=== PATIENT | male | born 2000 | race Caucasian/White ===

== ENCOUNTER 2020-11-09 01:51 | Emergency (ER) | payer BC, SELFPAY ==
--- NOTE | ~2020-11-09 | CT_ITS ---
EXAMINATION: CT abdomen pelvis w con INDICATION: Left lower quadrant pain TECHNIQUE: Computed tomographic images of the abdomen and pelvis were obtained after the administrati on of 100 cc of Omnipaque 350 intravenous contrast. The dose-length product (DLP) was 251.35 mGy-cm. Automated exposure control and iterative reconstruction technique were employed. COMPARISON: None available FINDINGS: The lung bases are clear. The heart size is normal. The liver, spleen, pancreas, gallbladde r, and adrenal glands are normal. Hypoattenuating lesions in the kidneys, measuring up to 6 cm on the right, are too small to characterize but likely represent cysts. The appendix is normal. No patholog ically enlarged abdominal or pelvic lymph nodes are identified. There is no free intraperitoneal gas or evidence of bowel obstruction. There is some apparent formed stool in nondilated small bowel loops of the pelvis, suggesting slow transit. The visualized osseous structures are unremarkable. There is a moderate volume of colonic stool. IMPRESSION: 1. Constipation. Small amount of formed stool in nondilated small bowel loops the pelvis suggests slo w transit. Reviewed, dictated and finalized at location A. IMPRESSION: 1. Constipation. Small amount of formed stool in nondilated small bowel loops t he pelvis suggests slow transit.
[2020-11-09 02:00] VITALS: BP 158/91; PULSE 109; RESP 16; TEMP 36.4; O2SAT 100
[2020-11-09 02:03] LABS: Glucose Point of Care 162 (65-105)
[2020-11-09 02:31] LABS: Basophils Absolute Auto 0.1 K/mm3 (0.0-0.1); Basophils Percent Auto 0.9 % (0.2-1.2); Eosinophils Absolute Auto 0.2 K/mm3 (0-0.3); Eosinophils Percent Auto 2.8 % (0-4.4); Hematocrit 40.4 % (42.0-52.0); Hemoglobin 14.7 g/dL (14.0-18.0); Immature Granulocyte Absolute 0.02 K/mm3 (0.00-0.031); Immature Granulocyte Percent A 0.4 % (0-0.5); Lymphocytes Absolute Auto 2.31 K/mm3 (0.9-3.2); Lymphocytes Percent Auto 42.5 % (18.3-44.2); Mean Corpuscular HGB Conc 36.4 g/dl (32-36); Mean Corpuscular Hemoglobin 31.2 pg (26-34); Mean Corpuscular Volume 85.8 fl (80-100); Monocytes Absolute Auto 0.5 K/mm3 (0.1-0.6); Neutrophils Absolute Auto 2.4 K/mm3 (1.3-6.7); Neutrophils Percent Auto 44.4 % (45.5-73.1); Platelet Count Result 318 k/mm3 (150-375); Red Blood Count 4.71 M/mm3 (4.6-6.20); Red Cell Distribution Width 12.8 % (11.5-14.5); White Blood Count 5.4 K/mm3 (4.5-10.0)
[2020-11-09 02:33] LABS: Add Urine Microscopic? NO; Appearance Urine Clear (Clear); Bilirubin Urine Negative (Negative); Blood Urine Negative (Negative); Color Urine Colorless (Yellow); Glucose Urine UA Negative (Negative); Ketones Urine Negative (Negative); Leukocyte Esterase Ur Negative LEU/UL (Negative); Nitrate Urine Negative (Negative); Protein Urine Negative (Negative); Urobilinogen Urine Negative mg/dL (<2.0)
[2020-11-09 02:34] LABS: Specific Grav Ur 1.003 (1.001-1.035)
[2020-11-09] MEDS: SODIUM CHLORIDE 0.9% IV 1,000 ML 999 ML IV CONT (02:35)
[2020-11-09] MEDS: ONDANSETRON INJ 4 MG/2 ML VIAL IV PUSH (02:35)
[2020-11-09] MEDS: MORPHINE SULFATE (*CRX) 4 MG/ML INJ IV PUSH (02:35)
[2020-11-09 02:44] LABS: Alanine Aminotransferase 13 U/L (4-50); Albumin Level 3.8 g/dL (3.5-5.1); Alkaline Phosphatase 47 U/L (38-126); Anion Gap 7 mmol/L (8-16); Aspartate Amino Transferase 23 U/L (17-59); Bilirubin,Total 0.2 mg/dL (0.2-1.3); Blood Urea Nitrogen 12 mg/dL (9-20); Calcium 8.7 mg/dL (8.4-10.2); Carbon Dioxide 31 mmol/L (22-30); Chloride 103 mmol/L (98-107); Estimated CRCL calculation 189 ml/min; Estimated Glomerular Filt Rate > 60; Glucose 148 mg/dL (75-110); Lipase 129 U/L (23-300); Potassium 3.4 mmol/L (3.4-5.0); Sodium 141 mmol/L (137-145)
[2020-11-09 02:46] VITALS: BP 140/96; PULSE 95; RESP 21; O2SAT 99
[2020-11-09 02:49] LABS: Beta-Hydroxybutyrate/Acetoacetate 0.07 mmol/L (0.02-0.27)
[2020-11-09 02:54] LABS: Lactic Acid Reflex 1.6 mmol/L (0.7-2.1)
[2020-11-09 03:07] VITALS: BP 141/102; PULSE 103; RESP 15; O2SAT 99
[2020-11-09 03:17] VITALS: BP 145/100; PULSE 93; RESP 22; O2SAT 100
[2020-11-09 03:31] VITALS: BP 139/100; PULSE 96; RESP 20; O2SAT 98
--- NOTE | 2020-11-09 03:35 | ED.GENADULT ---
HPI - General Adult General Chief complaint: Recheck/Abnormal Lab/Rx Stated complaint: low bs/ kidney issues? Time Seen by Provider: 11/09/20 01:58 History of Present Illness HPI narrative: Patient is a 20-year-old gentleman who presents the emergency department with the chief complaint of blood sugar issues. The patient reports he is a insulin-dependent diabetic and has been seen in the emergency department multiple times over the last several days at different facilities in the area. Patient reports he felt a tearing sensation in his abdominal wall and has had pain and discomfort in his abdomen since then he reports has been urinating less and is felt as though he has been rather thirsty. The patient reports that he has had problems with his blood sugars being low during the day and have been fluctuating. The patient did report that he had restarted back on his insulin regimen about a month ago after he had had some insurance issues. Patient denies vomiting denies diarrhea. Related Data Allergies Allergy/AdvReac Type Severity Reaction Status Date / Time No Known Allergies Allergy Verified 11/09/20 02:34 Review of Systems Review of Systems: Narrative: A 10 system review of systems was completed on the patient and is negative except for what is stated in the HPI. Nursing and ancillary documentation was reviewed. PMFSH Comments Past medical history is significant for insulin-dependent diabetes Social history the patient denies illicit drug use Exam Narrative: Exam Narrative: GENERAL: Well-appearing, well-nourished, and in no acute distress. HEAD: Normocephalic, atraumatic. EYES: PERRLA and EOMI. ENT: Nares clear, no rhinorrhea or epistaxis. Mucous membranes moist. NECK: Supple. CHEST: Clear to auscultation. No respiratory distress. HEART: Regular rate and rhythm. No murmur heard. Normal peripheral pulses. ABDOMEN: Soft, diffuse mild tenderness, nondistended, normal active bowel sounds. EXTREMITIES: Normal range of motion. No edema. SKIN: Warm, dry, no rash. NEURO: No focal deficits. Alert and oriented x3. PSYCH: Normal mood and affect. Course Course Emergency Course: CT scan was read by the stat read radiologist as showing prominent fecal material most likely constipation no evidence of bowel obstruction and no abnormal fluid Laboratory studies showed no evidence of DKA white blood cell count was within normal limits Vital Signs Vital signs: Vital Signs Temperature 36.4 C 11/09/20 02:00 Pulse Rate 109 H 11/09/20 02:00 Respiratory Rate 16 11/09/20 02:00 Blood Pressure 158/91 H 11/09/20 02:00 Pulse Oximetry 100 11/09/20 02:00 Temperature 36.4 C 11/09/20 02:00 Pulse Rate 95 11/09/20 02:46 Respiratory Rate 21 H 11/09/20 02:46 Blood Pressure 140/96 H 11/09/20 02:46 Pulse Oximetry 99 11/09/20 02:46 Medical Decision Making Vital Signs Vital Signs: Vital Signs Temperature 36.4 C 11/09/20 02:00 Pulse Rate 109 H 11/09/20 02:00 Respiratory Rate 16 11/09/20 02:00 Blood Pressure 158/91 H 11/09/20 02:00 Pulse Oximetry 100 11/09/20 02:00 Temperature 36.4 C 11/09/20 02:00 Pulse Rate 95 11/09/20 02:46 Respiratory Rate 21 H 11/09/20 02:46 Blood Pressure 140/96 H 11/09/20 02:46 Pulse Oximetry 99 11/09/20 02:46 Lab Data Result diagrams: 11/09/20 02:24 11/09/20 02:25 Labs: Lab Results 11/09/20 11/09/20 11/09/20 Range/Units 01:59 02:24 02:24 WBC 5.4 (4.5-10.0) K/mm3 RBC 4.71 (4.6-6.20) M/mm3 Hgb 14.7 (14.0-18.0) g/dL Hct 40.4 L (42.0-52.0) % MCV 85.8 (80-100) fl MCH 31.2 (26-34) pg MCHC 36.4 H (32-36) g/dl RDW 12.8 (11.5-14.5) % Plt Count 318 (150-375) k/mm3 MPV 9.0 (7.4-10.4) fl Immature Gran % (Auto) 0.4 (0-0.5) % Neut % (Auto) 44.4 L (45.5-73.1) % Lymph % (Auto) 42.5 (18.3-44.2) % [place] % (Auto) 9.0 H (2.6-8.5) % Eos % (Auto) 2.8 (0-4.
[2020-11-09 04:05] VITALS: BP 137/105; PULSE 90; RESP 16; TEMP 37; O2SAT 100
== END 2020-11-09 04:06 | disposition home or self-care (01) ==
PROVIDERS: Emergency Provider Emergency Medicine
DX: R10.84 Generalized abdominal pain (principal); E10.69 Type 1 diabetes mellitus with other specified complication; Z79.4 Long term (current) use of insulin
CPT/HCPCS: 36415; 74177; 80053; 81003; 82010; 82948; 83605; 83690; 85025; 96361; 96374; 96375; 99284; J2270; J2405; J7030; Q9967

== ENCOUNTER 2022-06-22 00:59 | Day surgery (SDC) | payer BC, SELFPAY ==
[2022-06-19 09:46] VITALS: BMI 23.8
--- NOTE | 2022-06-19 09:58 | PC.NURSE ---
Report to the Outpatient Waiting Room, entrance under the green pavilion located off [facility], at time ___0900____ on date _06/22/22 . Planned Procedure Time: ___1100 . Time changes happen often and if your time is changed the preop area will call you the afternoon before. - You and your visitor will be asked to self-screen and do not enter if you have any COVID symptoms. - We encourage only one visitor and NO visitors under age 16 are allowed at this time. Your visitor will receive communication by the phone number that is given day of service. - The patient visitor is requested to social distance or may leave the building when not with patient due to restrictions. - A mask is required within the hospital. Patients may have clear liquids (water, carbonated beverages, clear teas, apple juice) until 3 hours prior to surgery (0800 AM) with a maximum of 20 ounces. - No food from midnight until time of surgery - Infants may have breast milk until 4 hours before surgery, infant formula 6 hours prior to surgery. - Children will be allowed to drink immediately following surgery. If applicable, please bring a bottle or sippy cup to assist with drinking. Juice, water, soda, and popsicles are readily available. For infants on formula, please bring formula the day of surgery. Pacifiers are allowed. Take the following medications with a SIP of water the morning of surgery: __DO NOT TAKE ANY INSULIN DAY OF SURGERY Medications to discontinue per physician N/A Date to take last dose Please no make-up, nail vietnamese, hairspray, perfume, deodorant, or body powder the day of surgery. No jewelry (including any body piercings) or valuables the day of surgery, leave them at home. Please take a shower or bath the night before, or the morning of, surgery with an antibacterial soap. Wear comfortable, loose fitting clothing. Children are encouraged to wear pajamas. - Jewelry must be removed prior to entering the operating room. Rings and piercings that are not removed may be cut off. - The hospital will not accept responsibility for valuables. - Please leave all valuables, including medications, at home the day of surgery. If you are going home after surgery, a licensed package car driver must drive you home. - NO public transportation without another adult. - We recommend that an adult stay with you for 24 hours following discharge. - We also recommend that you do not drive, make important decision, drink alcoholic beverages, or take any drugs that were not prescribed by your health care provider for at least 24 hours after your discharge time. For Pediatric surgeries, we recommend two adults accompany the child home. Follow any additional instructions given to you from your surgeon. If you or anyone in your household have experienced Covid symptoms in the past week, please notify your surgeon or the nurse liaison at the phone number below for possible testing. Telephone instructions given to PT and asked if any additional questions and then verbalized understanding. Patient advised to call surgeon office or pre surgery nurse liaison [phone] if any additional questions.
--- NOTE | 2022-06-22 07:39 | ECG_ITS ---
Measurements Intervals [place] Rate: 67 P: 33 WA: 130 QRS: 67 QRSD: 111 T: 11 QT: 365 QTc: 387 Interpretive Statements SINUS RHYTHM WITH SINUS ARRHYTHMIA INTRAVENTRICULAR CONDUCTION DELAY NONSPECIFIC T-WAVE ABNORMALITY- ANT/INF LEADS BORDERLINE ECG NO PREVIOUS ECG AVAILABLE FOR COMPARISON Electronically Signed On 06-22-2022 9:51:24 [employer] by Dalton Chong D.O.
[2022-06-22 09:22] VITALS: BP 136/86; PULSE 80; RESP 16; TEMP 37; O2SAT 100
[2022-06-22] MEDS: ACETAMINOPHEN 500 MG TABLET 1000 MG PO (09:32)
[2022-06-22] MEDS: LACTATED RINGERS 1,000 ML 30 ML IV CONT (09:41)
[2022-06-22 09:48] LABS: Glucose Point of Care 137 mg/dl (65-105)
--- NOTE | 2022-06-22 09:52 | PM.IMHP ---
H&P: HPI History of Present Illness Date/Time: 06/22/22 09:52 Chief Complaint: nasal dyspnea Narrative: chronic epistaxis and nasal dyspnea Review of Systems Review of Systems: All systems reviewed & are unremarkable except as noted in HPI and below PMFSH Social History Social History Tobacco type: e-cigarettes/vaping Additional smoking assessment comments: VAPES DAILY/4YRS Alcohol intake: current Alcohol use details: STATES DRINKS ON WEDNESDAY NIGHTS Substance use: current Substance use type: marijuana Last use: 06/18/22 PM Living arrangements: with family Additional living arrangements comments: [facility] WITH BROTHER SONYA [phone] & [facility] [phone] Spiritual care concerns: No Meds Home Medications and Allergies Home Medications Medication Instructions Recorded Confirmed Type insulin aspart U-100 100 unit/mL See Rx Instructions .Route .COMPLEX 06/19/22 06/19/22 History (3 mL) subcutaneous pen (Novolog Flexpen U-100 Insulin aspart) insulin glargine-yfgn 100 unit/mL 36 unit subcut HS 06/19/22 06/19/22 History (3 mL) subcutaneous pen (Semglee (insulin glargine-yfgn) Pen) Allergies Allergy/AdvReac Type Severity Reaction Status Date / Time No Known Allergies Allergy Verified 06/22/22 09:51 Vital Signs Vital Signs - 24 hr 06/22/22 09:22 Temperature 37.0 C Pulse Rate 80 Respiratory Rate 16 Blood Pressure 136/86 Pulse Oximetry 100 Oxygen Delivery Room Air Exam Narrative: Left nasal septum deviation, bilaterla turbinate hypertrophy, rest of exam wnl Assessment and Plan Assessment and plan (1) Deviated nasal septum: Code(s): J34.2 - Deviated nasal septum Status: Acute Plan Tito presents today with deviated nasal septum to the left, here for septoplasty and turbinoplasty. r/b/a reviewed, pt questions answered, agrees to proceed with surgery. refer to outpt H&P for full details.
--- NOTE | 2022-06-22 09:54 | WPDHPUPDATE1 ---
History and Physical Update Update Date/Time: 06/22/22 09:54 History and Physical has been reviewed, including an updated exam of the patient. There are NO changes in the patient's condition. Risks, benefits, and alternatives have been discussed and questions answered. Patient agrees to proceed with procedure.
[2022-06-22 09:56] LABS: Anion Gap 8 mmol/L (8-16); Blood Urea Nitrogen 15 mg/dL (9-20); Calcium 9.2 mg/dL (8.4-10.2); Carbon Dioxide 29 mmol/L (22-30); Chloride 102 mmol/L (98-107); Estimated CRCL calculation 180 ml/min; Estimated Glomerular Filt Rate > 60; Glucose 151 mg/dL (65-110); Potassium 4.2 mmol/L (3.4-5.0); Sodium 139 mmol/L (137-145)
[2022-06-22] MEDS: OXYMETAZOLINE HCL 0.05% NAS 15 ML BTL (*BKC) 1 SPRAY NASAL (09:58)
--- NOTE | 2022-06-22 09:58 | WPDANESEPPF ---
Anes - Initial Pre Proc Eval Procedure: Operation Date: 06/22/22 10:30 Proposed Procedures p Endoscopic Septoplasty - Nelson Dixon MD s Bilateral Turbinate Reduction - Nelson Dixon MD Date/Time: 06/22/22 09:58 Surgeon: Nelson Dixon MD Pre Op Diagnosis: Deviated Septum, Tubinate Hypertrophy Patient Data Age: 22 Gender: M Height: 1.83 m Weight: 82.1 kg Last Vital Signs Temp 37.0 C 06/22/22 09:22 Pulse 80 06/22/22 09:22 Resp 16 06/22/22 09:22 BP 136/86 06/22/22 09:22 Pulse Ox 100 06/22/22 09:22 O2 Del Method Room Air 06/22/22 09:22 Allergies Allergy/AdvReac Type Severity Reaction Status Date / Time No Known Allergies Allergy Verified 06/22/22 09:51 Home Medications Medication Instructions Recorded Confirmed Type insulin aspart U-100 100 unit/mL See Rx Instructions .Route .COMPLEX 06/19/22 06/22/22 History (3 mL) subcutaneous pen (Novolog Flexpen U-100 Insulin aspart) insulin glargine-yfgn 100 unit/mL 36 unit subcut HS 06/19/22 06/22/22 History (3 mL) subcutaneous pen (Semglee (insulin glargine-yfgn) Pen) Laboratory Tests 06/22/22 06/22/22 09:25 09:45 Sodium 139 mmol/L mmol/L (137-145) Potassium 4.2 mmol/L mmol/L (3.4-5.0) Chloride 102 mmol/L mmol/L (98-107) Carbon Dioxide 29 mmol/L mmol/L (22-30) Anion Gap 8 mmol/L mmol/L (8-16) BUN 15 mg/dL mg/dL (9-20) Creatinine 0.60 mg/dL L mg/dL (0.7-1.3) Estim Creat Clear Calc 180 ml/min ml/min Estimated GFR > 60 (59 - ) Glucose 151 mg/dL H mg/dL (65-110) POC Capillary Glucose 137 mg/dl H mg/dl (65-105) Calcium 9.2 mg/dL mg/dL (8.4-10.2) Patient hx anesthesia problems: none Family hx anesthesia problems: none Results Review: All pre-operative results and documents have been reviewed as part of the pre-operative evaluation. [facility] Past Medical History Medical History Diabetes Social History Social History Tobacco type: e-cigarettes/vaping Additional smoking assessment comments: VAPES DAILY/4YRS Alcohol intake: current Alcohol use details: STATES DRINKS ON WEDNESDAY NIGHTS Substance use: current Substance use type: marijuana Last use: 06/18/22 PM Living arrangements: with family Additional living arrangements comments: [facility] BROTHER SONYA [phone] & [facility] [phone] Spiritual care concerns: No Anes - Eval Final PreProcedure Day of Procedure 06/22/22 09:58 Patient weight: normal Heart: regular rate and rhythm Lungs: clear to auscultation Airway: Mallampati scale class II Neurological: alert and oriented Last oral intake: >/= 8 hours ASA classification: II Emergent: no Anesthetic plan: proceed Anesthesia type and monitoring: general ETT and standard monitoring Results Review: All pre-operative results and documents have been reviewed as part of the pre-operative evaluation. Informed Consent: The patient's anesthetic plan and its attendant risks and benefits were discussed with the patient/family/POA. Questions were solicited and answers provided to the satisfaction of the patient/family/POA.
--- NOTE | 2022-06-22 10:00 | W.PM.PROC2 ---
Procedure Note - Detailed Date of Procedure 06/22/22 Pre-op Diagnosis Deviated Septum, Tubinate Hypertrophy Post-op Diagnosis Same Procedure Performed Endoscopic septoplasty, turbinoplasty Surgeon Nelson Dixon MD Anesthesia General Indications Epistaxis, left deviated septum Findings 1. Cartilaginous perforation of septum with erosion of the left septal mucosa anteriorly. Right mucoperichondrium intact. 2. Septoplasty carefully performed to reduce deviation while not enlarging perforation or compromising L-strut. 3. Martins splints placed Description of Procedure DESCRIPTION OF PROCEDURE: ? After obtaining informed consent and proper site verification the patient was brought to the operating room and placed on the operating table in the supine position. They were placed under general endotracheal anesthesia by the anesthesia provider. The patient was then draped in standard fashion for septoplasty and turbinoplasty. A timeout was performed and the correct patient and procedure were verified. The nasal cavity was injected with 1% lidocaine with 1-100,000 epinephrine and packed with afrin-soaked cottonoid pledgets. ? Attention was then directed to the nasal septum. A hemitransfixion incision was made in the left caudal septum and a mucoperichondrial flap was elevated in the usual fashion. The flap was elevated under endoscopic visualization and the remainder of the case was performed with endoscopic assistance. As noted above, there was evidence of a left mucoperichondrial and cartilaginous perforation before the procedure began and a careful dissection was performed to preserve mucosa and avoid enlarging the perforation. Using a D-knife, an incision was made through the cartilaginous septum with care to preserve the appropriate caudal and dorsal ?L-strut? of cartilage. The cartilage was then disarticulated from the bony-cartilaginous junction and the deviated cartilage was removed. Further deviated bone and cartilage was removed from the maxillary crest and posterior bony septum with care to avoid injury to the mucoperichondrial flap using a combination of dissection and Alfredo-Harmony forceps. Once this was completed, the hemitransfixion incision was closed using simple interrupted 4-0 chromic suture. A quilting stitch to reapproximate the mucoperichondrial flaps was then placed using 4-0 plain gut suture on a Shoaib needle. ? Next attention was directed to the turbinates. Using a 0? telescope and 2mm turbinate blade microdebrider, a stab incision was made in the anterior face of the turbinate and dissection was carried posterior to perform submucosal resection. Next the turbinate was outfractured using a blunt instrument. A similar procedure was then performed on the right-hand side without difficulty. Martins splints covered in mupirocin ointment were placed in the nasal cavity and secured to the membranous septum using a 3-0 Prolene suture. ?The patient was awakened from general anesthesia extubated in the operating room, and transported to the recovery room in stable condition without complication. Estimated Blood Loss 20 Drains No Packing Yes (martins splints) Pathology None sent Complications No immediate complications Condition Stable Disposition PACU
[2022-06-22] MEDS: ceFAZolin 2 GM/D5W 50 ML 2 GM/50 ML BAG IVPB (10:24)
[2022-06-22] MEDS: MUPIROCIN 2% OINT 22 GM TUBE 1 APPLIC EACH NARE (11:20)
[2022-06-22 11:35] VITALS: BP 149/91; PULSE 105; RESP 12; TEMP 36.6; O2SAT 100
[2022-06-22 11:47] LABS: Glucose Point of Care 139 mg/dl (65-105)
[2022-06-22 11:50] VITALS: BP 144/94; PULSE 104; RESP 16; O2SAT 100
[2022-06-22 12:05] VITALS: BP 123/80; PULSE 103; RESP 15; O2SAT 99
[2022-06-22 12:20] VITALS: BP 157/89; PULSE 87; RESP 16
[2022-06-22 12:45] VITALS: BP 150/89; PULSE 83; RESP 16
[2022-06-22] MEDS: oxyCODONE HCL (*CRX) 5 MG TAB IR PO (12:46)
== END 2022-06-22 13:04 | disposition home or self-care (01) ==
PROVIDERS: Anesthesiology; Visit Provider Otolaryngology
PROC: (CPT 30520; principal; 2022-06-22 10:30)
PROC: (CPT 30520; 2022-06-22 10:30)
DX: J34.2 Deviated nasal septum (principal); J34.3 Hypertrophy of nasal turbinates; J34.89 Other specified disorders of nose and nasal sinuses; E11.9 Type 2 diabetes mellitus without complications; F17.290 Nicotine dependence, other tobacco product, uncomplicated; F12.90 Cannabis use, unspecified, uncomplicated; Z79.4 Long term (current) use of insulin
CPT/HCPCS: 30520; 30140; 36415; 80048; 82948; 93005; A9270; J0330; J0690; J2250; J2405; J2704; J3010; J7120